=== PATIENT | female | born 1985 | race Caucasian/White ===

== ENCOUNTER 2017-08-09 10:39 | Emergency (ER) | payer OTHER ==
[~2017-08-09] VITALS: Ht 170.2 cm; Wt 56.9 kg
[2017-08-09] MEDS ORDERED: XULANE (11:13)
[2017-08-09 12:23] LABS: HEMATOCRIT 42.1 % (34.6-47.8); HEMOGLOBIN 14.1 g/dL (11.7-16.4); WHITE BLOOD COUNT 14.3 x10^3/uL (3.4-10)
[2017-08-09] MEDS ORDERED: ONDANSETRON 2MG/ML, 2ML ONE (12:23)
[2017-08-09 12:30] LABS: PATH.CAST-FLAG NOT PRESENT; SPERM-FLAG NOT PRESENT; SRC-FLAG NOT PRESENT; XTAL-FLAG NOT PRESENT; YLC-FLAG NOT PRESENT
[2017-08-09] MEDS ORDERED: ONDANSETRON 2MG/ML, 2ML IVPush ONE (12:30)
[2017-08-09] MEDS ORDERED: SODIUM CHLORIDE FLUSH 10ML SYR IVF ONE (12:30)
[2017-08-09] MEDS ORDERED: SODIUM CHLORIDE 0.9% 1,000ML IVBOLUS ONE (12:30)
[2017-08-09 12:35] LABS: BLOOD UREA NITROGEN 14 mg/dL (7-18)
[2017-08-09 12:41] LABS: ASPARTATE AMINO TRANSFERASE 13 U/L (15-37)
[2017-08-09] MEDS ORDERED: MAALOX/HYOSCYAMINE/LIDOCAINE 45 ML BTL PO ONE (13:00)
[2017-08-09] MEDS ORDERED: MAALOX/HYOSCYAMINE/LIDOCAINE 45 ML BTL ONE (13:00)
[2017-08-09] MEDS ORDERED: METOCLOPRAMIDE 5 MG/ML, 2ML IVPush ONE (13:00)
[2017-08-09] MEDS ORDERED: METOCLOPRAMIDE 5 MG/ML, 2ML ONE (13:00)
[2017-08-09] MEDS ORDERED: ACETAMINOPHEN 325 MG TABLET ONE (13:17)
[2017-08-09] MEDS ORDERED: SODIUM CHLORIDE 0.9%, 500ML IVBOLUS ONE (13:30)
[2017-08-09] MEDS ORDERED: ACETAMINOPHEN 325 MG TABLET PO ONE (13:30)
[2017-08-09 15:02] VITALS: BP 114/46
== END 2017-08-09 14:55 | disposition home or self-care (01) ==
LOC: ED 14:00
DX: A08.4 Viral intestinal infection, unspecified (principal); E86.0 Dehydration; R11.2 Nausea with vomiting, unspecified
CPT/HCPCS: 36415; 80053; 81001; 82962; 83605; 83690; 84703; 85025; 87086; 96361; 96374; 96375; 99284; J2405; J2765; J7030; J7040

== ENCOUNTER 2017-08-10 14:04 | Emergency (ER) | payer OTHER ==
[~2017-08-10] VITALS: Ht 167.6 cm; Wt 59.4 kg
[~2017-08-10 14:04] MED LIST: XULANE
[2017-08-10] MEDS ORDERED: PROMETHAZINE 25 MG/ML, 1ML ONE (15:08)
[2017-08-10] MEDS ORDERED: FAMOTIDINE 20 MG/2 ML ONE (15:08)
[2017-08-10 15:21] LABS: HEMATOCRIT 38.9 % (34.6-47.8); HEMOGLOBIN 12.9 g/dL (11.7-16.4)
[2017-08-10] MEDS ORDERED: PROMETHAZINE 25 MG/ML, 1ML IM ONE (15:30)
[2017-08-10] MEDS ORDERED: FAMOTIDINE 20 MG/2 ML IVP ONE (15:30)
[2017-08-10] MEDS ORDERED: SODIUM CHLORIDE 0.9% 1,000ML IVBOLUS ONE ×2 (15:30→16:30)
[2017-08-10] MEDS ORDERED: SODIUM CHLORIDE FLUSH 10ML SYR IVF ONE (15:30)
[2017-08-10 15:32] LABS: ASPARTATE AMINO TRANSFERASE 15 U/L (15-37); BLOOD UREA NITROGEN 10 mg/dL (7-18)
[2017-08-10] MEDS ORDERED: OMNIPAQUE 350 MG/ML, 100ML BOTTLE ONE (15:41)
[2017-08-10 17:08] VITALS: BP 129/72
== END 2017-08-10 18:32 | disposition home or self-care (01) ==
LOC: ED 16:59
DX: E86.0 Dehydration (principal); R11.2 Nausea with vomiting, unspecified; Z88.0 Allergy status to penicillin
CPT/HCPCS: 36415; 74177; 80053; 80178; 83690; 85025; 96361; 96372; 96374; 99285; J2550; J7030; Q9967; S0028

== ENCOUNTER 2018-05-14 13:38 | Inpatient (IN) | payer OTHER ==
[~2018-05-14] VITALS: Ht 170.2 cm; Wt 75.0 kg
[2018-05-24] MEDS ORDERED: LACTATED RINGERS 1,000 ML IV SCH (21:35)
[2018-05-24] MEDS: D5%-LACTATED RINGERS 1,000 ML IV SCH (21:35)
[2018-05-24] MEDS ORDERED: OXYTOCIN 30U/ 0.9% NaCL 500ML 500 ML IV ONE (21:35)
[2018-05-24] MEDS ORDERED: OXYTOCIN 30U/ 0.9% NaCL 500ML 500 ML IV PRN (21:35)
[2018-05-24] MEDS ORDERED: MISOPROSTOL 25 MCG TABLET ONE (21:52)
[2018-05-24] MEDS ORDERED: NEWBORN KIT ONE (21:52)
[2018-05-24] MEDS ORDERED: OXYTOCIN 30U/ 0.9% NaCL 500ML 500 ML ONE (21:52)
[2018-05-24] MEDS ORDERED: FENTANYL PF 100 MCG/2ML IV PRN (22:00)
[2018-05-24] MEDS ORDERED: FENTANYL PF 100 MCG/2ML IVPush PRN (22:00)
[2018-05-24] MEDS: MISOPROSTOL 25 MCG TABLET VG PRN (22:00)
[2018-05-24] MEDS ORDERED: METOCLOPRAMIDE 5 MG/ML, 2ML IVPush PRN (22:00)
[2018-05-24] MEDS ORDERED: CALCIUM CARBONATE 500 MG TAB.CHEW PO PRN (22:00)
[2018-05-24] MEDS ORDERED: ONDANSETRON 2MG/ML, 2ML IVPush PRN (22:00)
[2018-05-24] MEDS ORDERED: SODIUM CITRATE/CITRIC ACID 30 ML UDC PO PRN (22:00)
[2018-05-24 22:06] LABS: BASOPHILS # (AUTO) 0.07 x10^3/uL (0-0.1); BASOPHILS % (AUTO) 1 % (0-1); EOSINOPHILS # (AUTO) 0.14 x10^3/uL (0-0.4); EOSINOPHILS % (AUTO) 1 % (1-7); LYMPHOCYTES # (AUTO) 2.88 x10^3/uL (1-3.4); LYMPHOCYTES % (AUTO) 26 % (22-44); MD NO; MEAN CORPUSCULAR HEMOGLOBIN 31.2 pg (27.0-34.8); MEAN CORPUSCULAR HGB CONC 33.6 g/dL (32.4-35.8); MEAN CORPUSCULAR VOLUME 92.8 fL (80-100); MEAN PLATELET VOLUME 10.4 fL (7.4-10.4); MONOCYTES # (AUTO) 0.67 x10^3/uL (0.2-0.8); MONOCYTES % (AUTO) 6 % (2-9); NEUTROPHILS % (AUTO) 66 % (42-75); PLATELET COUNT 156 x10^3/uL (130-400); RED BLOOD COUNT 4.13 x10^6/uL (3.82-5.3)
[2018-05-25] MEDS: MISOPROSTOL 25 MCG TABLET VG PRN (02:00)
[2018-05-25] MEDS ORDERED: MISOPROSTOL 25 MCG TABLET ONE (02:03)
[2018-05-25] MEDS: D5%-LACTATED RINGERS 1,000 ML IV SCH ×3 (05:35→21:35)
[2018-05-25] MEDS ORDERED: FENTANYL/BUPIV./NS/PF 250 ML EPIDCONT SCH (11:57)
[2018-05-25] MEDS ORDERED: BUPIVACAINE/PF 0.25% ONE (11:59)
[2018-05-25] MEDS ORDERED: NALOXONE 0.4 MG/ML, 1ML IVPush PRN (12:00)
[2018-05-25] MEDS ORDERED: EPHEDRINE 50 MG/ML, 1ML IVPush PRN (12:00)
[2018-05-25] MEDS ORDERED: LACTATED RINGERS 1,000 ML IVBOLUS PRN (12:00)
[2018-05-25] MEDS: LACTATED RINGERS 1,000 ML IV SCH ×3 (12:21→17:50)
[2018-05-25] MEDS ORDERED: MISOPROSTOL 200 MCG TABLET ONE (18:02)
[2018-05-25] MEDS ORDERED: LIDOCAINE/PF 1%, 30ML ONE (18:02)
[2018-05-25] MEDS: OXYTOCIN 30U/ 0.9% NaCL 500ML 500 ML IV SCH (21:48)
[2018-05-25] MEDS ORDERED: DIPH,PERTUSS(ACELL),TET VAC/PF NC IM-VACC PRN (22:00)
[2018-05-25] MEDS ORDERED: DOCUSATE 100 MG CAPSULE PO PRN (22:00)
[2018-05-25] MEDS ORDERED: MEASLES,MUMPS&RUBELLA VACC/PF 0.5 ML SQ PRN (22:00)
[2018-05-25] MEDS ORDERED: ACETAMINOPHEN 325 MG TABLET PO PRN ×2 (22:00)
[2018-05-25] MEDS ORDERED: CALCIUM CARBONATE 500 MG TAB.CHEW PO PRN (22:00)
[2018-05-25] MEDS ORDERED: ONDANSETRON 2MG/ML, 2ML IV PRN (22:00)
[2018-05-25] MEDS ORDERED: MAGNESIUM HYDROXIDE 8%, 30ML UDC PO PRN (22:00)
[2018-05-25] MEDS ORDERED: MISOPROSTOL 200 MCG TABLET PR PRN (22:00)
[2018-05-25] MEDS ORDERED: RHOGAM FROM BLOOD BANK 1 NOTE EA IM/IV ONE (22:00)
[2018-05-25] MEDS ORDERED: OXYcodone/APAP 5/325MG TABLET PO PRN ×2 (22:00)
[2018-05-25] MEDS ORDERED: IBUPROFEN 600 MG TABLET ONE (23:11)
[2018-05-25] MEDS: IBUPROFEN 600 MG TABLET PO PRN (23:13)
[2018-05-26 00:30] VITALS: BP 114/64
[2018-05-26 04:50] VITALS: BP 115/71
[2018-05-26 05:26] LABS: MEAN CORPUSCULAR HEMOGLOBIN 31.6 pg (27.0-34.8); MEAN CORPUSCULAR HGB CONC 33.8 g/dL (32.4-35.8); MEAN CORPUSCULAR VOLUME 93.7 fL (80-100); MEAN PLATELET VOLUME 10.4 fL (7.4-10.4); PLATELET COUNT 123 x10^3/uL (130-400); RED BLOOD COUNT 3.85 x10^6/uL (3.82-5.3); RED CELL DISTRIBUTION WIDTH 13.1 % (9.6-15.2)
[2018-05-26] MEDS: D5%-LACTATED RINGERS 1,000 ML IV SCH ×2 (05:35→13:35)
[2018-05-26] MEDS: IBUPROFEN 600 MG TABLET PO PRN ×3 (05:39→18:28)
[2018-05-26 05:49] LABS: BASOPHILS # (AUTO) 0.04 x10^3/uL (0-0.1); BASOPHILS % (AUTO) 0 % (0-1); EOSINOPHILS # (AUTO) 0.07 x10^3/uL (0-0.4); EOSINOPHILS % (AUTO) 0 % (1-7); LYMPHOCYTES # (AUTO) 2.27 x10^3/uL (1-3.4); LYMPHOCYTES % (AUTO) 15 % (22-44); MD SCAN; MONOCYTES # (AUTO) 0.92 x10^3/uL (0.2-0.8); MONOCYTES % (AUTO) 6 % (2-9); NEUTROPHILS # (AUTO) 12.02 x10^3/uL (1.8-6.8); NEUTROPHILS % (AUTO) 79 % (42-75)
[2018-05-26 07:20] VITALS: BP 131/77
[2018-05-26] MEDS: OXYTOCIN 30U/ 0.9% NaCL 500ML 500 ML IV SCH ×2 (07:48→17:48)
[2018-05-26] MEDS: PRENATAL VIT/IRON/FA 1 EACH TABLET PO SCH (09:00)
[2018-05-26] MEDS: LACTATED RINGERS 1,000 ML IV SCH (11:57)
[2018-05-26 12:51] VITALS: BP 112/72
[2018-05-26 16:00] VITALS: BP 114/70
[2018-05-26 20:10] VITALS: BP 110/66
[2018-05-27] MEDS: OXYTOCIN 30U/ 0.9% NaCL 500ML 500 ML IV SCH (03:48)
[2018-05-27 07:10] VITALS: BP 117/74
[2018-05-27] MEDS: IBUPROFEN 600 MG TABLET PO PRN (07:31)
[2018-05-27] MEDS: PRENATAL VIT/IRON/FA 1 EACH TABLET PO SCH (07:31)
[2018-05-27] MEDS ORDERED: IBUP-1222 PO (07:54)
== END 2018-05-27 09:48 | disposition home or self-care (01) | DRG 775 ==
LOC: LDIP 05-24 21:26 → 2NW 05-26 00:05
PROVIDERS: ADMIT Obstetrics & Gynecology; ATTEND Obstetrics & Gynecology
PROC: 10907ZC Drainage of Amniotic Fluid, Therapeutic from Products of Conception, Via Natural or Artificial Opening (ICD-10-PCS; 2018-05-24)
PROC: 3E0P7VZ Introduction of Hormone into Female Reproductive, Via Natural or Artificial Opening (ICD-10-PCS; 2018-05-24)
PROC: 10E0XZZ Delivery of Products of Conception, External Approach (ICD-10-PCS; principal; 2018-05-25)
PROC: 0KQM0ZZ Repair Perineum Muscle, Open Approach (ICD-10-PCS; 2018-05-25)
PROC: 3E0R3BZ Introduction of Anesthetic Agent into Spinal Canal, Percutaneous Approach (ICD-10-PCS; 2018-05-25)
PROC: 00HU33Z Insertion of Infusion Device into Spinal Canal, Percutaneous Approach (ICD-10-PCS; 2018-05-25)
DX: O48.0 Post-term pregnancy (principal); Z37.0 Single live birth; O69.81X0 Labor and delivery complicated by cord around neck, without compression, not applicable or unspecified; Z3A.41 41 weeks gestation of pregnancy; O70.1 Second degree perineal laceration during delivery
CPT/HCPCS: 36415; 82803; 85025; 86850; 86900; J3490; J2590; J3010; J7120